=== PATIENT | female | born 1960 | race Caucasian/White ===

== ENCOUNTER → 2018-04-08 | Outpatient (CLI) | payer OTHER ==
[~2018-04-08] MED LIST: LEV112 PO
--- NOTE | 2018-04-08 13:16 | RADIOLOGY IMAGING REPORT ---
FACILITY: [facility] PATIENT NAME: IMANI GRANGER : [id number] MR: [id number] V: [id number] EXAM DATE: [id number] ORDERING PHYSICIAN: DRE BANUELOS TECHNOLOGIST: Marleen Hickman PROCEDURE:BILATERAL DIGITAL SCREENING MAMMOGRAM WITH CAD ASSISTED INTERPRETATION & 3D TOMOSYNTHESIS COMPARISON:03/26/17 & priors back to 01/23/13 INDICATIONS:screening FINDINGS: Breast parenchyma is heterogeneously dense. There are no mammographic findings concerning for malignancy. There is no significant interval change. DIAGNOSTIC CATEGORY 1--NEGATIVE. RECOMMENDATIONS: ROUTINE MAMMOGRAM AND CLINICAL EVALUATION. IMPRESSION: BIRADS 1: Negative. Dictated by: Jeromy Jackson on 04/08/2018 at 10:45 Transcribed by: CLAUDY on 04/08/2018 at 12:52 Approved by: Jeromy Jackson on 04/08/2018 at 13:15 [facility]
== END ==
LOC: MAMO 00:10
PROVIDERS: ATTEND Nurse Practitioner Family
DX: Z12.31 Encounter for screening mammogram for malignant neoplasm of breast (principal)
CPT/HCPCS: 77063; 77067

== ENCOUNTER → 2018-08-27 | Outpatient (CLI) | payer OTHER ==
[~2018-08-27] MED LIST changes: +IOPAMIDOL 76% 75 ML INFUS BTL 75 ML ONE
--- NOTE | 2018-08-27 10:57 | EKG ---
FACILITY: [facility] PATIENT NAME: IMANI GRANGER : [id number] MR: [id number] V: [id number] EXAM DATE: ORDERING PHYSICIAN: LOIDA BETTS TECHNOLOGIST: KELL Dee Reason : Blood Pressure : / mmHG Vent. Rate : 089 BPM Atrial Rate : 089 BPM P-R Int : 162 ms QRS Dur : 092 ms QT Int : 356 ms P-R-T Axes : 067 069 136 degrees QTc Int : 433 ms Sinus rhythm Probable left atrial enlargement Diffuse ST-T findings raise concern for ischemia Abnormal ECG No previous ECGs available Confirmed by RICKY COUCH ([id number]) on 08/27/2018 3:55:31 PM Referred By: ROXANE Confirmed By:RICKY COUCH
--- NOTE | 2018-08-27 11:11 | RADIOLOGY IMAGING REPORT ---
[place] [facility] [place] NAME: Yolanda Whitehead : 1960 MR: [id number] V: [id number] EXAM DATE: ORDERING PHYSICIAN: LOIDA BETTS TECHNOLOGIST: Location: [facility] [place] Patient: Yolanda Whitehead : 1960 Visit/Account:[id number] Date of Sevice: 08/27/2018 Exam type: CHEST PA AND LAT History: Facial neuralgia with facial palsy Comparison: None. Findings: The lungs are free of acute effusions, infiltrates or edema. The cardiac silhouette is normal in siz e. The trachea is in midline. IMPRESSION: 1. No acute cardiopulmonary process is seen Report Dictated By: Melissa Lehman MD at 08/27/2018 11:07 AM Report E-Signed By: Melissa Lehman MD at 08/27/2018 11:08 AM WSN:[id number]
[2018-08-27 11:24] LABS: PLATELET COUNT, AUTOMATED 242 K/uL (150-450)
[2018-08-27 11:37] LABS: INR 0.99
--- NOTE | 2018-08-27 11:58 | RADIOLOGY IMAGING REPORT ---
FACILITY: [facility] - [place] PATIENT NAME: Yolanda Whitehead : 1960 MR: [id number] V: [id number] EXAM DATE: ORDERING PHYSICIAN: LOIDA BETTS TECHNOLOGIST: [place] [facility] [place] : 1960 Visit/Account:[id number] Date of Sevice: 08/27/2018 EXAMINATION: CT head without IV contrast CT head with IV contrast HISTORY: Right-sided facial droop, hemiplegia, neuralgia, facial palsy for 4 days. COMPARISON: None. TECHNIQUE: Contiguous axial images were obtained from the skull base to the vertex before and after IV contrast. Sagittal and coronal reformatted images are also submitted. CONTRAST: 75 mL of IV Isovue-370. One of the following dose optimization techniques was utilized in the performance of this exam: Autom ated exposure control; adjustment of the mA and/or kV according to the patient's size; or use of an i terative reconstruction technique. Specific details can be referenced in the facility's radiology C T exam operational policy. FINDINGS: Brain volume: Normal. Ventricles: Normal. Acute ischemic changes: None. Hemorrhage: No acute intracranial hemorrhage. Masses/edema: None. Enhancement: There is no abnormal intracranial enhancement. Tan-white: Negative. White matter: Normal. Vessels: Negative. Extra-axial: Negative. Calvarium/scalp: Negative. Skull base/visualized face: There is symmetric, normal fat at the stylomastoid foramina bilaterally. Visualized sinuses/orbits: Negative. IMPRESSION: Normal enhanced head CT. No intracranial mass lesion or hemorrhage. No CT evidence of acute infarct . CT is not sensitive for Vanegas's palsy. Report Dictated By: Angie Wiseman MD at 08/27/2018 11:49 AM Report E-Signed By: Angie Wiseman MD at 08/27/2018 11:53 AM WSN:[email or web address]
== END ==
LOC: CT 10:06
PROVIDERS: ATTEND Nurse Practitioner Family
DX: R94.31 Abnormal electrocardiogram [ECG] [EKG] (principal); G81.90 Hemiplegia, unspecified affecting unspecified side; G51.8 Other disorders of facial nerve; G51.0 Bell's palsy
CPT/HCPCS: 36415; 70470; 71046; 84484; 85025; 85379; 85610; 85730; 86140; 93005; Q9967; 82040; 82247; 82310; 82374; 82435; 82565; 82947; 84075; 84132; 84155; 84295; 84450; 84460; 84520

== ENCOUNTER 2018-09-09 16:41 | Outpatient (RCR) | payer OTHER ==
--- NOTE | 2018-09-03 08:10 | PT INITIAL EVALUATION ---
MEDICAL DIAGNOSIS: G51.0, G81.90, G51.8, G51.0 TREATMENT DIAGNOSIS: same DATE OF ONSET: 08/23/18 SUBJECTIVE: Yolanda Whitehead presents to physical therapy with complaints of R sided arenas's palsy that started on the August. She reports that her R side of her face started to become numb and then it would disappear and then the numbness returned. As a result, she reports that they ruled out stroke and any other possible problems and have come to the conclusion that it is arenas's palsy. She reports that she was on steroids for 6 days and since that point the swollen feeling, numbness, and tingling have abolished. She reports that she has some deviation with her mouth but that is the last deviation that she notices. She denies any pain. She denies any cervical pain. REHAB PROBLEM LIST: Decreased ROM Decreased Strength Decreased Function PREVIOUS MEDICAL HISTORY: See EMR OCCUPATION: [employer] OBJECTIVE: Posture: She demonstrates mild forward head, B rounded shoulders, mild increased thoracic kyphosis, and mild decreased lumbar lordosis. ROM: Cervical AROM full in all directions with normal end feels. Sensation: Normal sensation Special Tests: eyes closed: no deviation; normal. open/close mouth: II; mild deviation, pucker lips; II; mild deviation. blinking: no deviation. Sneer, I; no deviation. OO; no deviation. wrinkle nose: II; mild deviation. eye brows: I; no deviation. Mobility: Independent Gait: No gait deviations noted ASSESSMENT: Yolanda has minimal deviations with [place] musculature of her R side of her face that will benefit from skilled physical therapy addressing the listed impairments to return to prior level of function. She is independent with her home exercise program. Short Term Goals 1 week: Pt will demonstrate 75% return of her R side facial movements as compared to her L side facial movements when opening and closing her mouth, puckering, wrinkling nose, and moving her lower lip to improve function and QOL. 2 weeks: Pt will demonstrate 100% return of her R side facial movements as compared to her L side facial movements when opening and closing her mouth, puckering, wrinkling her nose, and moving her lower lip to improve function and QOL. Patient's Goals reduce deviation with her mouth completely PLAN: Patient to be seen for Manual Therapy/STM/MET Strengthening/condition Range of Motion Spinal Stabilization Work Hardening/Cond Stretching Neuromuscular Re-ed Closed Chain Program Posture/Body mechanics Biofeedback Home Exercise Program Therapeutic Activities 2x/Week for 4 Weeks If you have any questions, comments, or concerns about this report or plan, please contact me at . Thank you, Wilber Martines, PT, DPT RMD
[~2018-09-09 16:41] MED LIST changes: -IOPAMIDOL 76% 75 ML INFUS BTL 75 ML ONE
--- NOTE | 2018-09-10 07:52 | PT PLAN OF CARE ---
Physician: Manjula Chowdhury, TRAP SETTER-BC, OCN Patient is being seen: X2 visits Therapist: Wilber Martines, PT, DPT Medical Diagnosis: G51.0, G81.90, G51.8, G51.0 Treatment Diagnosis: same Date of Onset: 08/23/18 Date of Initial Evaluation: 09/02/18 Date patient was last seen: 09/09/18 Number of treatments: 2 Number of cancellations/No shows: 0 INTERVENTIONS: Manual Therapy/STM/MET Strengthening/condition Range of Motion Spinal Stabilization Work Hardening/Cond Stretching Neuromuscular Re-ed Closed Chain Program Posture/Body mechanics Biofeedback Home Exercise Program Therapeutic Activities GOALS: 1 week: Pt will demonstrate 75% return of her R side facial movements as compared to her L side facial movements when opening and closing her mouth, puckering, wrinkling nose, and moving her lower lip to improve function and QOL. MET 2 weeks: Pt will demonstrate 100% return of her R side facial movements as compared to her L side facial movements when opening and closing her mouth, puckering, wrinkling her nose, and moving her lower lip to improve function and QOL. Will MET PATIENT'S GOAL: reduce deviations with her mouth completely Status of Patient's Goals: Progressed well Patient Compliance: Excellent Prognosis: Excellent Reasons for continuing therapy: This is a discharge note for Yolanda Whitehead. She reports that she is doing well. She reports that she has been doing the home exercise program at least 2 times per day and feels like she has improved in the last week. She reports that she feels like she has a tiny deviation with her R upper lip, but states that she feels like if she was not clued into the deviation then she would not notice the deviation. She demonstrates significant improvements with decreased R upper lip deviation and only has a minimal to no deviation with opening her mouth on the R upper lip. Following assistive movement was utilized with her R upper lip she was able to open and demonstrated no deviation on the R side. She is independent with her home exercise program. She is progressing well and feels like she can perform it on her own and be successful. As a result, she will be discharged from PT to [facility]. Posture: She demonstrates mild forward head, B rounded shoulders, mild increased thoracic kyphosis, and mild decreased lumbar lordosis. ROM: Cervical AROM full in all directions with normal end feels. Special Tests: eyes closed: no deviation; normal. open/close mouth: I to II; minimal deviation, pucker lips; I; no deviation. blinking: no deviation. Sneer, I; no deviation. OO; no deviation. wrinkle nose: I; no deviation. eye brows: I; no deviation. Mobility: Independent If you have any questions, please contact me at [phone]. Thank you, Wilber Martines, PT, DPT RMD
== END 2018-09-09 18:00 | disposition home or self-care (01) ==
LOC: PT 16:41
PROVIDERS: ATTEND Nurse Practitioner Family
DX: G51.0 Bell's palsy (principal); G81.90 Hemiplegia, unspecified affecting unspecified side; G51.8 Other disorders of facial nerve
CPT/HCPCS: 97161

== ENCOUNTER → 2018-11-14 | Outpatient (CLI) | payer OTHER ==
--- NOTE | 2018-11-19 11:02 | RT STRESS TEST REPORT ---
FACILITY: [facility] - [place] PATIENT NAME: IMANI GRANGER : [id number] MR: [id number] V: [id number] EXAM DATE: ORDERING PHYSICIAN: LOIDA BETTS TECHNOLOGIST: Josh Acquisition Time: 2018-11-14 10:18:15 Total Exercise Time: 00:08:59 Test Indications: Left atrial enlargment Medications: See chart Protocol: SHAGGY 2 Max HR: 151 BPM 92% of Pred: 163 BPM Max BP: 150/068 mmHG Max Work Load: 10.4 METS see echo report Confirmed by YVETTE GREWAL ([id number]), acquisitions editor ELIEZER CASTORENA ([id number]) on 11/19/2018 11:01:44 AM Referred By: Overread By: YVETTE GREWAL
== END ==
LOC: RESP 01:45
PROVIDERS: ATTEND Nurse Practitioner Family
DX: G51.0 Bell's palsy (principal); G81.90 Hemiplegia, unspecified affecting unspecified side; G51.8 Other disorders of facial nerve; I51.7 Cardiomegaly
CPT/HCPCS: 93017; 93350

== ENCOUNTER → 2019-05-14 | Outpatient (CLI) | payer OTHER ==
--- NOTE | 2019-05-15 08:20 | RADIOLOGY IMAGING REPORT ---
FACILITY: [facility] - [place] PATIENT NAME: IMANI GRANGER : [id number] MR: [id number] V: [id number] EXAM DATE: [id number] ORDERING PHYSICIAN: DRE BANUELOS TECHNOLOGIST: Lisette Morataya PROCEDURE: BILATERAL DIGITAL SCREENING MAMMOGRAM WITH CAD ASSISTED INTERPRETATION & 3D TOMOSYNTHESIS. REASON FOR STUDY: Screening. FAMILY HISTORY OF BREAST CANCER: None. BREAST PROCEDURES/TREATMENTS: A benign aspiration of the Right breast. COMPARISON: 04/08/18, 03/26/17, 03/13/16, 03/11/15, 02/17/14. VIEWS OBTAINED: 2D & 3D full field CC & MLO. BREAST DENSITY: The breasts are heterogeneously dense which can obscure small masses. MAMMOGRAM FINDINGS: The parenchymal pattern has remained stable allowing for difference in mammographic technique & patient positioning. IMPRESSION: BIRADS 1: Negative. DIAGNOSTIC CATEGORY 1--NEGATIVE. RECOMMENDATIONS: ROUTINE MAMMOGRAM AND CLINICAL EVALUATION. Dictated by: Melissa Lehman M.D. on 05/14/2019 at 14:57 Transcribed by: MILTON on 05/14/2019 at 15:55 Approved by: Melissa Lehman M.D. on 05/15/2019 at 8:18 [facility]
== END ==
LOC: MAMO 00:17
PROVIDERS: ATTEND Nurse Practitioner Family
DX: Z12.31 Encounter for screening mammogram for malignant neoplasm of breast (principal)
CPT/HCPCS: 77063; 77067